=== PATIENT | female | born 1990 | race Caucasian/White ===

== ENCOUNTER 2016-06-26 09:08 | Inpatient (IN) | payer BC, MEDICAID ==
[2016-06-26] MEDS ORDERED: Acetaminophen 325 MG Tab PO PRN ×3 (10:26→19:58)
[2016-06-26] MEDS ORDERED: Misoprostol 400 MCG (4 X 100 MCG TAB) RECTAL PRN ×2 (10:26→19:58)
[2016-06-26] MEDS ORDERED: Lactated Ringers 500 ML IV ONE (10:26)
[2016-06-26] MEDS ORDERED: Ondansetron 4 MG/2 ML SDV IV PRN (10:26)
[2016-06-26] MEDS ORDERED: Sodium Chloride 0.9% 10 ML Syringe FLUSH PRN ×3 (10:26→19:58)
[2016-06-26] MEDS ORDERED: Nalbuphine 10 MG/1 ML Vial IVPUSH PRN (10:26)
[2016-06-26] MEDS ORDERED: Carboprost Tromethamine 250 MCG/1 ML Amp IM PRN ×2 (10:26→19:58)
[2016-06-26] MEDS ORDERED: Methylergonovine 0.2 MG/1 ML Amp IM PRN (10:26)
[2016-06-26] MEDS ORDERED: Lactated Ringers 1,000 ML IV SCH ×2 (10:30)
[2016-06-26] MEDS ORDERED: Misoprostol 25 MCG (1/4 of 100 MCG) Tab VAG PRN (10:30)
[2016-06-26] MEDS: Oxytocin/Normal Saline 30 UNIT/500 ML BAG IV SCH ×2 (10:54→21:39)
[2016-06-26] MEDS ORDERED: fentaNYL 100 MCG/2 ML SDV ITHECAL ONE (16:57)
[2016-06-26] MEDS ORDERED: Morphine PF 5 MG/10 ML SDV ITHECAL ONE (16:57)
[2016-06-26] MEDS: Lidocaine 1% 30 ML SDV INJECT PRN ×2 (19:32→19:38)
[2016-06-26] MEDS ORDERED: Oxytocin 10 Units/1 ML SDV IM PRN (19:58)
[2016-06-26] MEDS ORDERED: Simethicone 80 MG Tab.Chew PO PRN (19:58)
[2016-06-26] MEDS ORDERED: Benzocaine/Menthol 20%-0.5% Spray 56 GM Canister TOP PRN (19:58)
--- NOTE | 2016-06-26 20:08 | PCM.DEL ---
L & D Note - General Info Date of Service: 06/26/16 Mother's Due Date: 06/30/16 - Delivery Note Labor: spontaneous Delivery Outcome: Livebirth Infant Delivery Method: Spontaneous Vaginal Delivery Infant Delivery Mode: Vacuum Extraction Presentation: Right Occiput Anterior (VERENICE) Nuchal cord: present, reduced (Cut and clamped x2 at the perineum) Anesthesia Type: Local, Intrathecal Anesthetic: lidocaine (xylocaine) 0.5% plain Local anesthetic volume: 4cc Amniotic Fluid Description: Clear Episiotomy Type: None Laceration: 2nd degree, perineal Suture type: vicryl Suture size: 3-0 Placenta: intact, spontaneous Cord: 3 vessels Estimated blood loss: 300 : bulb syringe, stimulated, warmed, blanket used, warmer used Score 1 min: 7 Score 5 min: 9 Delivery Comments (Free Text/Narrative):: 26-year-old, , at 39w3d presented with spontaneous rupture of membranes around 630 this morning. Pitocin was used for augmentation of labor. She did receive an intrathecal for pain control. She progress to a lip dilated, and started to have significant pain so there was an attempt to push through the lip. This was unsuccessful so she labored for another 20 minutes. A second attempt was then made to push through the lip which was successful. She pushed for about 15 minutes; however, was having a difficult time pushing due to pain. Therefore a Kiwi MightyVac was applied. Patient pushed through 2 contractions with good progress. There were no pop-offs. After delivery of the head, a nuchal x2 was noted. Because the cord was tight, it was cut and clamped x2. The remainder of the baby was delivered. Baby was a viable baby boy with Apgars of 7 and 9. Measurements are pending at this time. Placental delivered spontaneously a short time later. A second degree perineal laceration was repaired in the usual fashion. Uterus was firm, and bleeding was appropriate. There were no complications. Vacuum Extractor Progress Note - Alternative Labor Strategies Considered Strategies considered:: Reports: Position changes used to facilitate rotation & descent, Rest Indications considered:: Reports: yes Indications:: Reports: Shortening of 2nd stage for maternal benefit - Patient Prepared Patient prepared:: Reports: yes Informed consent:: Reports: Yes Risks: Reports: yes Risks include:: Reports: Laceration, Shoulder dystocia - Probability of Success High probability of success:: Reports: yes weight estimated:: Reports: AGA Patient diabetic:: Reports: no Pelvis adequate:: Reports: yes Asynclitic:: Reports: no Station:: +2 - Exit Strategy Exit strategy available:: Reports: yes - General Info Date of Service: 06/26/16 - Patient Data Vitals - most recent: Last Vital Signs Temp 36.5 C 06/26/16 17:45 Pulse 84 06/26/16 17:45 Resp 18 06/26/16 17:45 BP 121/67 06/26/16 17:45 Pulse Ox 99 06/26/16 17:45 Weight - most recent: 69.853 kg I&O - last 24 hours: Intake & Output 06/26/16 06/26/16 06/26/16 06:59 14:59 22:59 Intake Total 1000 1000 Balance 1000 1000 Lab Results last 24 hrs: Laboratory Results - last 24 hr 06/26/16 Range/Units 10:00 WBC 11.2 H (5.0-10.0) 10^3/uL RBC 4.38 (4.2-5.4) 10^6/uL Hgb 13.4 (12.0-16.0) g/dL Hct 39.3 (37.0-47.0) % MCV 89.7 (80-100) fL MCH 30.6 (27.0-34.0) pg MCHC 34.1 (33.0-35.0) g/dL Plt Count 238 (150-450) 10^3/uL Med Orders - Current: Current Medications Lactated Ringer's (Ringers, Lactated) 1,000 mls @ 125 mls/hr IV ASDIRECTED FABIAN Last Admin: 06/26/16 17:22 Dose: 125 mls/hr Oxytocin/Sodium Chloride (Pitocin In Ns 30 Unit/500 Ml) 30 unit in 500 mls @ 2 mls/hr IV TITRATE FABIAN; 2 MUNITS/MIN PRN Reason: Protocol Last Titration: 06/26/16 19:35 Dose: 500 munits/min, 500 mls/hr Misoprostol (Cytotec) 25 mcg VAG Q4H PRN PRN Reason: cervical ripening Stop: 06/27/16 14:31 Sodium Chloride (Saline Flush) 10 ml FLUSH ASDIRECTED PRN PRN Reason: Keep Vein Open Discontinued Medications Acetaminophen (Tylenol) 650 mg PO Q4H PRN PRN Reason: Pain (Mild 1-3) and fever Acetaminophen (Tylenol) 650 mg PO Q4H PRN PRN Reason: Pain/Fever Carboprost Tromethamine (Hemabate Ds) 250 mcg IM ASDIRECTED PRN PRN Reason: HEMORRHAGE Lactated Ringer's (Ringers, Lactated) 500 mls @ 999 mls/hr IV .BOLUS ONE Stop: 06/26/16 10:56 Last Admin: 06/26/16 16:20 Dose: 999 mls/hr Lactated Ringer's (Ringers, Lactated) 1,000 mls @ 125 mls/hr IV ASDIRECTED FABIAN Last Admin: 06/26/16 10:52 Dose: 125 mls/hr Lidocaine HCl (Xylocaine-Mpf 1%) 10 ml INJECT ASDIRECTED PRN PRN Reason: Perineal Repair Last Admin: 06/26/16 19:38 Dose: 10 ml Methylergonovine Maleate (Methergine) 0.2 mg IM ASDIRECTED PRN PRN Reason: Hemorrhage Misoprostol (Cytotec) 800 mcg RECTAL ASDIRECTED PRN PRN Reason: Hemorrhage Nalbuphine HCl (Nubain) 5 mg IVPUSH Q3H PRN PRN Reason: Pain (moderate 4-6) Ondansetron HCl (Zofran) 4 mg IV Q4H PRN PRN Reason: Nausea/Vomiting Last Admin: 06/26/16 16:00 Dose: 4 mg Sodium Chloride (Saline Flush) 10 ml FLUSH ASDIRECTED PRN PRN Reason: Keep Vein Open - Problem List & Annotations (1) Status post vacuum-assisted vaginal delivery SNOMED Code(s): 576713235, 06870783904501238 Code(s): Z87.42 - PERSONAL HISTORY OF OTH DISEASES OF THE FEMALE GENITAL TRACT Status: Acute Current Visit: Yes (2) PROM (premature rupture of membranes) SNOMED Code(s): 90331115 Code(s): O42.90 - ANNETTA ROM, 7TH0 BETW RUPT & ONST LABR, UNSP WEEKS OF GEST Status: Acute Current Visit: Yes (3) Perineal laceration during delivery SNOMED Code(s): 495562587 Code(s): O70.9 - PERINEAL LACERATION DURING DELIVERY, UNSPECIFIED Status: Acute Current Visit: Yes (4) Normal SNOMED Code(s): 97019355 Code(s): Z34.90 - ENCNTR FOR SUPRVSN OF NORMAL , UNSP, UNSP TRIMESTER Status: Acute Current Visit: No - Problem List Review Problem List Initiated/Reviewed/Updated: Yes - My Orders Last 24 Hours: My Active Orders 06/26/16 19:58 Notify Provider Vital Signs OB [RC] ASDIRECTED Up ad Maliha [RC] ASDIRECTED Vital Signs [RC] PFP Consult to Senior Engineering Technician [CONS] Routine Acetaminophen [Tylenol] 650 mg PO Q6H PRN Benzocaine/Menthol [Dermoplast Pain Relief [place]] See Dose Instructions TOP Q4H PRN Carboprost Tromethamine [Hemabate DS] 250 mcg IM ASDIRECTED PRN Docusate Sodium [Colace] 100 mg PO BID PRN Ibuprofen [Motrin] 800 mg PO Q8H PRN Misoprostol [Cytotec] 800 mcg RECTAL ONETIME PRN Oxytocin [Pitocin] 10 unit IM ONETIME PRN Simethicone 80 mg PO Q4H PRN Sodium Chloride 0.9% [Saline Flush] 10 ml FLUSH ASDIRECTED PRN Assess Lochia [WOMSER] Per Unit Routine Assess Uterine Involution [WOMSER] Per Unit Routine Breast Pump [WOMSER] Per Unit Routine Ice Therapy [OM.PC] Per Unit Routine Perineal Care [OM.PC] Per Unit Routine Saline Lock Insert [OM.PC] Urgent Sitz Bath [OM.PC] Per Unit Routine 06/26/16 Dinner Regular Diet [DIET] 06/27/16 09:00 Vit with Ca/FA/Iron [ Plus Iron] 1 each PO DAILY - Assessment Assessment:: 26-year-old, now , status post vacuum assisted vaginal delivery - Plan Plan:: 1. Initiate routine cares 2. Uncertain about 3. Anticipate discharge 06/28/16 Nirmala Pinedo MD
[2016-06-26] MEDS: Ibuprofen 800 MG Tab PO PRN (21:42)
[2016-06-26] MEDS: Docusate Sodium 100 MG Cap PO PRN (21:42)
[2016-06-27] MEDS: Ibuprofen 800 MG Tab PO PRN ×2 (08:36→20:18)
[2016-06-27] MEDS: Prenatal Multivitamin with Calcium/Folic Acid/Iron Tab PO SCH (08:36)
[2016-06-27] MEDS: Docusate Sodium 100 MG Cap PO PRN ×2 (08:36→20:18)
--- NOTE | 2016-06-27 10:02 | HP ---
SUBJECTIVE: Patient is a 26-year-old, G2, P1-0-0-1 at 39 weeks and 3 days who did notice leakage of clear fluid at roughly 6:30 this morning. Really no contractions, she had no vaginal bleeding. Good movement. She is a patient of Dr. Sprague. OB HISTORY: Patient had 1 vaginal delivery previously, 6 pounds 11 ounces. BRANCH SERVICE LEADER HISTORY: No abnormal Paps. No STDs. PAST MEDICAL HISTORY: Negative. PAST SURGICAL HISTORY: Negative. ALLERGIES: The patient has no known drug allergies. SOCIAL HISTORY: The patient is a smoker. LABS: The patient's blood type is A positive. She is rubella immune, RPR negative. Hep B negative, HIV negative, GC chlamydia negative. Hep C negative. 1 hour was 107. Quad was negative. Group B strep negative. Her last menstrual period was 09/24/2015. She did have an ultrasound on 02/03/2016 which was normal and consistent with dates. PHYSICAL EXAMINATION: Vital Signs: The patient's first blood pressure 144/85, then 140/89, temp 98.6, heart rate 104, respiratory rate 18. EFM is reactive and reassuring. She does have some irregular painless contractions. Cervix is 1.5 cm, 75% effaced, -1 station, cephalic, and definitely leaking clear fluid grossly. ASSESSMENT/PLAN: A 26-year-old, 2, para 1-0-0-1, at 39 weeks and 3 days with ROM. CBC is pending as of right now. I did explain this patient that I would like to start Pitocin due to her not having gone into active labor now for roughly 4 hours. She was okay with the plan and we will anticipate vaginal delivery. [facility] /[id number] JIGNESH
--- NOTE | 2016-06-27 14:15 | PCM.PNPP ---
- General Info Date of Service: 06/27/16 Subjective Update: 26-year-old, now , PPD#1 status post vacuum-assisted vaginal delivery. Patient is doing well. She is tolerating a general diet. No fevers, chills, dizziness or lightheadedness. She is voiding and passing gas. Vaginal bleeding has decreased overnight. She is trying to breastfeed. Functional Status: Reports: pain controlled, tolerating diet, ambulating, urinating. Denies: new symptoms - Review of Systems General: Reports: No Symptoms HEENT: Reports: no symptoms Pulmonary: Reports: no symptoms Cardiovascular: Reports: No Symptoms Gastrointestinal: Reports: No symptoms Genitourinary: Reports: no symptoms Musculoskeletal: Reports: no symptoms Skin: Reports: no symptoms - General Info Date of Service: 06/27/16 - Patient Data Vital Signs - most recent: Last Vital Signs Temp 36.7 C 06/27/16 08:50 Pulse 92 06/27/16 08:50 Resp 16 06/27/16 08:50 BP 110/70 06/27/16 08:50 Pulse Ox 99 06/27/16 08:50 Weight - most recent: 69.853 kg I&O - last 24 hours: Intake & Output 06/26/16 06/27/16 06/27/16 22:59 06:59 14:59 Intake Total 2550 Output Total 1300 Balance 2550 -1300 Med Orders - Current: Current Medications Acetaminophen (Tylenol) 650 mg PO Q6H PRN PRN Reason: mild pain or fever Benzocaine/Menthol (Dermoplast Pain Relief [place]) 0 gm TOP Q4H PRN PRN Reason: Perineal comfort measures Last Admin: 06/26/16 21:42 Dose: 1 spray Carboprost Tromethamine (Hemabate Ds) 250 mcg IM ASDIRECTED PRN PRN Reason: Excessive vaginal bleeding Docusate Sodium (Colace) 100 mg PO BID PRN PRN Reason: Constipation Last Admin: 06/27/16 08:36 Dose: 100 mg Lactated Ringer's (Ringers, Lactated) 1,000 mls @ 125 mls/hr IV ASDIRECTED FABIAN Last Admin: 06/26/16 17:22 Dose: 125 mls/hr Oxytocin/Sodium Chloride (Pitocin In Ns 30 Unit/500 Ml) 30 unit in 500 mls @ 2 mls/hr IV TITRATE FABIAN; 2 MUNITS/MIN PRN Reason: Protocol Last Titration: 06/26/16 22:35 Dose: 0 munits/min, 0 mls/hr Ibuprofen (Motrin) 800 mg PO Q8H PRN PRN Reason: Mild Pain or Fever Last Admin: 06/27/16 08:36 Dose: 800 mg Misoprostol (Cytotec) 25 mcg VAG Q4H PRN PRN Reason: cervical ripening Stop: 06/27/16 14:31 Misoprostol (Cytotec) 800 mcg RECTAL ONETIME PRN PRN Reason: Hemorrhage Oxytocin (Pitocin) 10 unit IM ONETIME PRN PRN Reason: Bleeding Prenat Multivit/Telecom Field Technician/Iron/Folic Ac ( Plus Iron) 1 each PO DAILY FABIAN Last Admin: 06/27/16 08:36 Dose: 1 each Simethicone (Simethicone) 80 mg PO Q4H PRN PRN Reason: Gas Sodium Chloride (Saline Flush) 10 ml FLUSH ASDIRECTED PRN PRN Reason: Keep Vein Open Sodium Chloride (Saline Flush) 10 ml FLUSH ASDIRECTED PRN PRN Reason: Keep Vein Open Discontinued Medications Acetaminophen (Tylenol) 650 mg PO Q4H PRN PRN Reason: Pain (Mild 1-3) and fever Acetaminophen (Tylenol) 650 mg PO Q4H PRN PRN Reason: Pain/Fever Carboprost Tromethamine (Hemabate Ds) 250 mcg IM ASDIRECTED PRN PRN Reason: HEMORRHAGE Lactated Ringer's (Ringers, Lactated) 500 mls @ 999 mls/hr IV .BOLUS ONE Stop: 06/26/16 10:56 Last Admin: 06/26/16 16:20 Dose: 999 mls/hr Lactated Ringer's (Ringers, Lactated) 1,000 mls @ 125 mls/hr IV ASDIRECTED FABIAN Last Admin: 06/26/16 10:52 Dose: 125 mls/hr Lidocaine HCl (Xylocaine-Mpf 1%) 10 ml INJECT ASDIRECTED PRN PRN Reason: Perineal Repair Last Admin: 06/26/16 19:38 Dose: 10 ml Methylergonovine Maleate (Methergine) 0.2 mg IM ASDIRECTED PRN PRN Reason: Hemorrhage Misoprostol (Cytotec) 800 mcg RECTAL ASDIRECTED PRN PRN Reason: Hemorrhage Nalbuphine HCl (Nubain) 5 mg IVPUSH Q3H PRN PRN Reason: Pain (moderate 4-6) Ondansetron HCl (Zofran) 4 mg IV Q4H PRN PRN Reason: Nausea/Vomiting Last Admin: 06/26/16 16:00 Dose: 4 mg Sodium Chloride (Saline Flush) 10 ml FLUSH ASDIRECTED PRN PRN Reason: Keep Vein Open - Interaction Disposition, : to Nursery Support Person: Significant Other - Recovery Exam Fundal Tone: Firm Fundal Level: 1 Fingerbreadths Below Umbilicus Fundal Placement: Midline Lochia Amount: Small Lochia Color: Rubra/Red Perineum Description: Intact, Minimal Bruising/Swelling Episiotomy/Laceration: Approximated Bladder Status: Nonpalpable - Exam General: alert, oriented Lungs: Clear to auscultation, Normal respiratory effort Cardiovascular: Regular Rate, Regular Rhythm. No: Murmurs Abdomen: soft, no tenderness Extremities: edema (Trace to lower extremities bilaterally) Skin: warm, dry - Problem List & Annotations (1) Status post vacuum-assisted vaginal delivery SNOMED Code(s): 843723935, [id number] Code(s): Z87.42 - PERSONAL HISTORY OF OTH DISEASES OF THE FEMALE GENITAL TRACT Status: Acute Current Visit: Yes (2) PROM (premature rupture of membranes) SNOMED Code(s): 69594505 Code(s): O42.90 - ANNETTA ROM, 7TH0 BETW RUPT & ONST LABR, UNSP WEEKS OF GEST Status: Acute Current Visit: Yes (3) Perineal laceration during delivery SNOMED Code(s): 833153507 Code(s): O70.9 - PERINEAL LACERATION DURING DELIVERY, UNSPECIFIED Status: Acute Current Visit: Yes (4) Normal SNOMED Code(s): 32197582 Code(s): Z34.90 - ENCNTR FOR SUPRVSN OF NORMAL , UNSP, UNSP TRIMESTER Status: Acute Current Visit: No - Problem List Review Problem List Initiated/Reviewed/Updated: Yes - My Orders Last 24 Hours: My Active Orders 06/26/16 19:58 Notify Provider Vital Signs OB [RC] ASDIRECTED Vital Signs [RC] PFP Consult to Glassworker [CONS] Routine Acetaminophen [Tylenol] 650 mg PO Q6H PRN Benzocaine/Menthol [Dermoplast Pain Relief [place]] See Dose Instructions TOP Q4H PRN Carboprost Tromethamine [Hemabate DS] 250 mcg IM ASDIRECTED PRN Docusate Sodium [Colace] 100 mg PO BID PRN Ibuprofen [Motrin] 800 mg PO Q8H PRN Misoprostol [Cytotec] 800 mcg RECTAL ONETIME PRN Oxytocin [Pitocin] 10 unit IM ONETIME PRN Simethicone 80 mg PO Q4H PRN Sodium Chloride 0.9% [Saline Flush] 10 ml FLUSH ASDIRECTED PRN Assess Lochia [WOMSER] Per Unit Routine Assess Uterine Involution [WOMSER] Per Unit Routine Breast Pump [WOMSER] Per Unit Routine Ice Therapy [OM.PC] Per Unit Routine Perineal Care [OM.PC] Per Unit Routine Saline Lock Insert [OM.PC] Urgent Sitz Bath [OM.PC] Per Unit Routine 06/26/16 Dinner Regular Diet [DIET] 06/27/16 09:00 Vit with Ca/FA/Iron [ Plus Iron] 1 each PO DAILY - Assessment Assessment:: 26-year-old, now , PPD#1 status post vacuum assisted vaginal delivery - Plan Plan:: 1. Continue routine cares 2. Uncertain about --has tried feeding and has pumped as well 3. Anticipate discharge 06/28/16 Nirmala Pinedo MD
[2016-06-28] MEDS: Ibuprofen 800 MG Tab PO PRN (08:15)
[2016-06-28] MEDS: Docusate Sodium 100 MG Cap PO PRN (08:15)
[2016-06-28] MEDS: Prenatal Multivitamin with Calcium/Folic Acid/Iron Tab PO SCH (08:15)
--- NOTE | 2016-06-28 08:24 | PCM.DCSUM1 ---
Discharge Summary - Hospital Course Free Text/Narrative:: 26-year-old, , at 39w3d presented with spontaneous rupture of membranes around 630 on 06/26/16. Pitocin was used for augmentation of labor. She did receive an intrathecal for pain control. Due to maternal fatigue/inadequate pushing, a vacuum assisted delivery was performed. She delivered a viable female weighing 3240 grams with Apgars of 7 and 9 at 1 and 5 minutes respectively. A second degree perineal laceration was performed. There were no complications with delivery. - Discharge Data Discharge Date: 06/28/16 Discharge Disposition: Home, Self-Care 01 Condition: Good - Discharge Diagnosis/Problem(s) (1) Status post vacuum-assisted vaginal delivery SNOMED Code(s): 179551121, 94423908294303639 ICD Code: Z87.42 - PERSONAL HISTORY OF OTH DISEASES OF THE FEMALE GENITAL TRACT Status: Acute Current Visit: Yes (2) PROM (premature rupture of membranes) SNOMED Code(s): 14211872 ICD Code: O42.90 - ANNETTA ROM, 7TH0 BETW RUPT & ONST LABR, UNSP WEEKS OF GEST Status: Acute Current Visit: Yes (3) Perineal laceration during delivery SNOMED Code(s): 251835220 ICD Code: O70.9 - PERINEAL LACERATION DURING DELIVERY, UNSPECIFIED Status: Acute Current Visit: Yes (4) Normal SNOMED Code(s): 74342574 ICD Code: Z34.90 - ENCNTR FOR SUPRVSN OF NORMAL , UNSP, UNSP TRIMESTER Status: Acute Current Visit: No - Patient Summary/Data Operative Procedure(s) Performed: Vacuum assisted vaginal delivery Complications: None Consults: Consultations 06/26/16 19:58 Consult to Legal Project Manager [CONS] Routine Labs Pending at D/C: None Recommended Follow-up Testing/Procedures: None Planned Operative Procedure(s) after DC: None Hospital Course: Unremarkable course. No clinical signs an anemia. No complications. - Patient Instructions Diet: Usual Diet as Tolerated Activity: As Tolerated, No Lifting Over 20 Pounds Driving: May Drive Today Showering/Bathing: May Shower Notify Provider of: Fever, Increased Pain, Nausea and/or Vomiting - Discharge Plan Home Medications: Home Meds PNV95/Ferrous Fumarate/FA [ Multivitamins] 1 each PO DAILY 06/02/14 [ History] Calcium Carbonate [Tums] 1 tab PO DAILY PRN 06/26/16 [History] Acetaminophen [Tylenol] 650 mg PO Q6H PRN #0 tablet 06/28/16 [Rx] Docusate Sodium [Colace] 100 mg PO BID PRN #0 cap 06/28/16 [Rx] Ibuprofen [IJD: Ibuprofen] 800 mg PO Q8H PRN #0 tablet 06/28/16 [Rx] Patient Handouts: Home Care Instructions for Mom, Care of a Perineal Tear Referrals: Nirmala Pinedo MD [Physician] - (6 weeks for ) - Discharge Summary/Plan Comment DC Time >30 min.: No Discharge Summary/Plan Comment: Discharge home today. Follow-up in 6 weeks for visit. Reasons to return sooner were discussed. - General Info Date of Service: 06/28/16 Subjective Update: 26-year-old, now , PPD#2 status post vacuum-assisted vaginal delivery. Patient is doing well. She is tolerating a general diet. No fevers, chills, dizziness or lightheadedness. She is voiding and passing gas. Vaginal bleeding has decreased overnight. She is breast and bottle feeding Functional Status: Reports: pain controlled, tolerating diet, ambulating, urinating - Review of Systems General: Reports: No Symptoms HEENT: Reports: no symptoms Pulmonary: Reports: no symptoms Cardiovascular: Reports: No Symptoms Gastrointestinal: Reports: No symptoms Genitourinary: Reports: no symptoms Musculoskeletal: Reports: no symptoms - Patient Data Vitals - Most Recent: Last Vital Signs Temp 36.7 C 06/27/16 20:00 Pulse 80 06/27/16 20:00 Resp 18 06/27/16 20:00 BP 116/91 H 06/27/16 20:00 Pulse Ox 99 06/27/16 08:50 Weight - Most Recent: 69.853 kg Lab Results - Last 24 hrs: Laboratory Results - last 24 hr 06/28/16 Range/Units 06:10 WBC 9.6 (5.0-10.0) 10^3/uL RBC 3.85 L (4.2-5.4) 10^6/uL Hgb 11.8 L (12.0-16.0) g/dL Hct 35.2 L (37.0-47.0) % MCV 91.4 (80-100) fL MCH 30.6 (27.0-34.0) pg MCHC 33.5 (33.0-35.0) g/dL Plt Count 211 (150-450) 10^3/uL Med Orders - Current: Current Medications Acetaminophen (Tylenol) 650 mg PO Q6H PRN PRN Reason: mild pain or fever Last Admin: 06/27/16 17:43 Dose: 650 mg Benzocaine/Menthol (Dermoplast Pain Relief [place]) 0 gm TOP Q4H PRN PRN Reason: Perineal comfort measures Last Admin: 06/26/16 21:42 Dose: 1 spray Carboprost Tromethamine (Hemabate Ds) 250 mcg IM ASDIRECTED PRN PRN Reason: Excessive vaginal bleeding Docusate Sodium (Colace) 100 mg PO BID PRN PRN Reason: Constipation Last Admin: 06/28/16 08:15 Dose: 100 mg Lactated Ringer's (Ringers, Lactated) 1,000 mls @ 125 mls/hr IV ASDIRECTED FABIAN Last Admin: 06/26/16 17:22 Dose: 125 mls/hr Oxytocin/Sodium Chloride (Pitocin In Ns 30 Unit/500 Ml) 30 unit in 500 mls @ 2 mls/hr IV TITRATE FABIAN; 2 MUNITS/MIN PRN Reason: Protocol Last Titration: 06/26/16 22:35 Dose: 0 munits/min, 0 mls/hr Ibuprofen (Motrin) 800 mg PO Q8H PRN PRN Reason: Mild Pain or Fever Last Admin: 06/28/16 08:15 Dose: 800 mg Misoprostol (Cytotec) 800 mcg RECTAL ONETIME PRN PRN Reason: Hemorrhage Oxytocin (Pitocin) 10 unit IM ONETIME PRN PRN Reason: Bleeding Prenat Multivit/[place]/Iron/Folic Ac ( Plus Iron) 1 each PO DAILY FABIAN Last Admin: 06/28/16 08:15 Dose: 1 each Simethicone (Simethicone) 80 mg PO Q4H PRN PRN Reason: Gas Sodium Chloride (Saline Flush) 10 ml FLUSH ASDIRECTED PRN PRN Reason: Keep Vein Open Sodium Chloride (Saline Flush) 10 ml FLUSH ASDIRECTED PRN PRN Reason: Keep Vein Open Discontinued Medications Acetaminophen (Tylenol) 650 mg PO Q4H PRN PRN Reason: Pain (Mild 1-3) and fever Acetaminophen (Tylenol) 650 mg PO Q4H PRN PRN Reason: Pain/Fever Carboprost Tromethamine (Hemabate Ds) 250 mcg IM ASDIRECTED PRN PRN Reason: HEMORRHAGE Fentanyl (Sublimaze) 25 mcg ITHECAL .STK-MED ONE Stop: 06/26/16 16:58 Lactated Ringer's (Ringers, Lactated) 500 mls @ 999 mls/hr IV .BOLUS ONE Stop: 06/26/16 10:56 Last Admin: 06/26/16 16:20 Dose: 999 mls/hr Lactated Ringer's (Ringers, Lactated) 1,000 mls @ 125 mls/hr IV ASDIRECTED FABIAN Last Admin: 06/26/16 10:52 Dose: 125 mls/hr Lidocaine HCl (Xylocaine-Mpf 1%) 10 ml INJECT ASDIRECTED PRN PRN Reason: Perineal Repair Last Admin: 06/26/16 19:38 Dose: 10 ml Methylergonovine Maleate (Methergine) 0.2 mg IM ASDIRECTED PRN PRN Reason: Hemorrhage Misoprostol (Cytotec) 800 mcg RECTAL ASDIRECTED PRN PRN Reason: Hemorrhage Misoprostol (Cytotec) 25 mcg VAG Q4H PRN PRN Reason: cervical ripening Stop: 06/27/16 14:31 Morphine Sulfate (Duramorph Pf) 0.5 mg ITHECAL .STK-MED ONE Stop: 06/26/16 16:58 Nalbuphine HCl (Nubain) 5 mg IVPUSH Q3H PRN PRN Reason: Pain (moderate 4-6) Ondansetron HCl (Zofran) 4 mg IV Q4H PRN PRN Reason: Nausea/Vomiting Last Admin: 06/26/16 16:00 Dose: 4 mg Sodium Chloride (Saline Flush) 10 ml FLUSH ASDIRECTED PRN PRN Reason: Keep Vein Open - Exam General: Reports: alert, oriented Lungs: Reports: Clear to auscultation, Normal respiratory effort Cardiovascular: Reports: Regular Rate, Regular Rhythm, No Murmurs Abdomen: Reports: bowel sounds present, soft, no tenderness, no distension, other (Uterine fundus firm at 2 cm below the umbilicus) Extremities: Reports: edema (Trace to lower extremities bilaterally) Skin: Reports: warm, dry, intact *Q Meaningful Use (DIS) - VTE *Q VTE Criteria *Q: - Stroke *Q Stroke Criteria *Q: - AMI *Q AMI Criteria *Q:
[2016-06-28 08:44] VITALS: BP 120/60
== END 2016-06-28 11:00 | disposition home or self-care (01) | DRG 560 ==
LOC: DL.OBCHECK 09:08 → DL.OB 10:00 → OBSVTOIN 19:32 → DL.OB 19:32
PROVIDERS: ADMIT Obstetrics & Gynecology; ATTEND Obstetrics & Gynecology
PROC: 10D07Z6 Extraction of Products of Conception, Vacuum, Via Natural or Artificial Opening (ICD-10-PCS; principal; 2016-06-26)
PROC: 0KQM0ZZ Repair Perineum Muscle, Open Approach (ICD-10-PCS; 2016-06-26)
PROC: 00HU33Z Insertion of Infusion Device into Spinal Canal, Percutaneous Approach (ICD-10-PCS; 2016-06-26)
DX: O69.81X0 Labor and delivery complicated by cord around neck, without compression, not applicable or unspecified (principal); O75.81 Maternal exhaustion complicating labor and delivery; O70.1 Second degree perineal laceration during delivery; Z3A.39 39 weeks gestation of pregnancy; Z37.0 Single live birth; O42.90 Premature rupture of membranes, unspecified as to length of time between rupture and onset of labor, unspecified weeks of gestation
CPT/HCPCS: 36415; 85027; A9270-GY; J2274; J2405; J2590; J3010; J7120